=== PATIENT | male | born 1990 | race Caucasian/White ===

== ENCOUNTER → 2019-03-04 | Outpatient (CLI) | payer BC ==
--- NOTE | 2019-03-05 09:12 | REP ---
Clinical: Acute back pain . Technique: AP, lateral, bilateral oblique, and coned-down views. Findings: Very subtle 2 mm of anterolisthesis at the L5-S1 level and possible spondylolysis cannot definitively be excluded. The remainder of the examination is normal for age. Impression: Cannot exclude mild L5-S1 spondylosis. Electronically Signed by Chadd Chappell MD 03/05/2019 09:04 A
== END ==
LOC: M WUC 08:48
PROVIDERS: ATTEND Physician Assistant
DX: M54.5 Low back pain (principal)